=== PATIENT | male | born 1990 | race Asian ===

== ENCOUNTER 2018-12-16 07:54 | Emergency (ER) | payer OTHER ==
[~2018-12-16] VITALS: Ht 170.2 cm; Wt 77.3 kg
[2018-12-16 07:54] VITALS: BP 141/72
[2018-12-16] MEDS ORDERED: ACET65SU PO (08:04)
[2018-12-16] MEDS ORDERED: IBUP-1022 PO (08:04)
[2018-12-16] MEDS ORDERED: CYCLOBENZAPRINE 10 MG TAB PO ONE (08:15)
[2018-12-16] MEDS ORDERED: KETOROLAC 60 MG/2 ML VIAL (J1885) IM ONE (08:15)
[2018-12-16] MEDS ORDERED: CYCL10TA PO (08:48)
[2018-12-16] MEDS ORDERED: NAPR-885 PO (08:48)
== END 2018-12-16 09:15 | disposition home or self-care (01) ==
LOC: M ED 07:54
DX: M62.830 Muscle spasm of back (principal)
CPT/HCPCS: 96372; 99282; J1885